=== PATIENT | male | born 1970 | race Hispanic/Latino ===

== ENCOUNTER 2024-06-08 21:22 | Emergency (ER) | payer SELFPAY ==
[~2024-06-08] VITALS: Ht 165.1 cm; Wt 68.0 kg
[2024-06-08 21:35] VITALS: TEMP 99.5
[2024-06-08] MEDS ORDERED: SODIUM CHLORIDE 0.9% 1000ML 1,000 ML ONE (21:37)
[2024-06-08 22:17] LABS: BASOPHILS # (AUTO) 0.1 (0.0-0.1); BASOPHILS % 1.2 % (0.0-1.0); EOSINOPHILS # (AUTO) 0.2 (0.0-0.4); EOSINOPHILS % 2.6 % (0.0-6.0); HEMATOCRIT 45.8 % (38.2-49.6); HEMOGLOBIN 15.5 g/dL (14.0-18.0); LYMPHOCYTES # (AUTO) 2.3 (1.0-3.2); LYMPHOCYTES % 39.6 % (18.0-39.1); MEAN CORPUSCULAR HEMOGLOBIN 32.4 pg (28-32); MEAN CORPUSCULAR HGB CONC 33.8 g/dL (31-35); MEAN CORPUSCULAR VOLUME 95.6 fL (81-99); MONOCYTES # (AUTO) 0.3 (0.2-0.8); MONOCYTES % 5.6 % (4.4-11.3); NEUTROPHILS # (AUTO) 2.9 (2.1-6.9); NEUTROPHILS % 50.8 % (38.7-80.0); PLATELET COUNT 197 x10e3/uL (140-360); RED BLOOD COUNT 4.79 x10e6/uL (4.3-5.7); RED CELL DISTRIBUTION WIDTH 11.6 % (11.7-14.4); WHITE BLOOD COUNT 5.71 x10e3/uL (4.8-10.8)
[2024-06-08] MEDS: SODIUM CHLORIDE 0.9% 1000ML 1,000 ML IV ONE (22:27)
[2024-06-08] MEDS: INSULIN REGULAR, HUMAN 100 UNIT/1 ML SQ ONE (22:28)
[2024-06-08 22:32] LABS: ALBUMIN 4.1 g/dL (3.5-5.0); ANION GAP 18.9 mmol/L (8-16); BILIRUBIN,TOTAL 0.5 mg/dL (0.2-1.2); CALCIUM 9.6 mg/dL (8.4-10.2); CREATININE, SERUM 0.95 mg/dL (0.72-1.25); POTASSIUM 3.9 mmol/L (3.5-5.1); TOTAL PROTEIN 8.1 g/dL (6.5-8.1)
[2024-06-08] MEDS ORDERED: METFORMIN HCL500 MG PO (23:58)
[2024-06-08] MEDS ORDERED: GLIMEPIRIDE2 MG PO (23:58)
[2024-06-09] VITALS: PULSE 62; RESP 17
[2024-06-09 00:18] VITALS: BP 131/91; PULSE 52; RESP 17; TEMP 98.4; O2SAT 99
== END 2024-06-09 00:35 | disposition home or self-care (01) ==
LOC: ER 21:33
DX: E11.65 Type 2 diabetes mellitus with hyperglycemia (principal); Z91.148 Patient's other noncompliance with medication regimen for other reason
CPT/HCPCS: 36415; 80053; 82948; 85025; 99284; J7030